=== PATIENT | female | born 1950 | race Caucasian/White ===

== ENCOUNTER 2016-08-27 05:21 | Inpatient (IN) | payer BC ==
--- NOTE | ~2016-08-27 | DS ---
Unit #: [id number] #: [id number] Patient: DUC BRUCE [id number] [address] [place], [place] [address] [id number] I MR#: [id number] NAME: DUC BRUCE. ROOM: 218 Age: 65 Sex: F Admission Date: 08/27/2016 : 1950 Discharge Date: 08/30/2016 Attending Physician: Nasim Sawyer M.D. Primary Care Physician: Gonzalez Heller M.D. DISCHARGE SUMMARY REASON FOR ADMISSION Near syncope, nausea. HISTORY OF PRESENT ILLNESS/HOSPITAL COURSE The patient is a very pleasant 65-year-old female with underlying history of hypertension, hyperlipidemia, hypothyroidism and depression, who developed acute onset of dizziness as well as vertigo. Every time that she would turn in a different direction she would have room spinning episodes as well as associated nausea. She was admitted for the same. She underwent a CT of the head and noncontrast in the emergency room, which did not show any acute process. She was admitted under the premise of possible underlying CVA and/or vestibular labyrinthitis. Consultation was placed to neurology services, who initially recommended MRI. However, the patient was unable to tolerate secondary to profound nausea and/or dizziness. This was attempted on two different occasions. The patient could not tolerate. The patient was treated secondary to her symptoms, which were most consistent with viral labyrinthitis/vertigo with IV Solu-Medrol, Antivert, promethazine and well as Zofran p.r.n. Over the past 48 hours she has shown marked improvement. She is now able to tolerate diet well with minimal nausea. She is able to ambulate without difficulty. She has no further spinning episodes. At this point in time we have held off on performing an MRI/MRA. Her hemoglobin A1c this hospital admission was 5.6%. Her B12 level did come back decreased to 274. She was given a B12 IM injection prior to discharge. It should also be noted that prior to discharge her blood pressure medications have been adjusted and her lisinopril has been discontinued, as her blood pressure systolic has remained in the low 100s. This morning it is currently the highest it has been through her hospital course at 136 systolic, but for now her lisinopril will be placed on hold. Her atenolol dosage will remain the same. I will give her a prescription for Antivert as well as prednisone at the time of discharge. Unit #: [id number] #: [id number] Patient: DUC BRUCE She will follow up with her primary care physician, Dr. Heller, in 7-10 days. She will also follow up as an outpatient for ongoing vestibular rehab. FINAL DISCHARGE DIAGNOSES 1. Vestibular labyrinthitis. 2. Vertigo. 3. Intractable nausea and vomiting, now resolved. 4. Hypertension. 5. Hyperlipidemia. 6. Depression. 7. B12 deficiency. 8. Morbid obesity. DISCHARGE MEDICATIONS 1. Zoloft 100 mg p.o. at nighttime. 2. Tenormin 25 mg p.o. daily. 3. Lipitor 20 mg p.o. at nighttime. 4. Synthroid 100 mcg p.o. daily. 5. Prednisone 40 mg p.o. daily times 5 days. 6. Antivert 25 mg p.o. q.8 h. p.r.n., #15, prescription given. Dictated by... Nasim Sawyer M.D. KEIKO/chelly TD: 09/02/2016 08:12 JOB #: [id number] DISCHARGE SUMMARY Page 1 of 1 X Nasim Sawyer MD X DISCHARGE SUMMARY
--- NOTE | ~2016-08-27 | CR72 ---
[facility] A Service [facility] RADIOLOGY TEXT RESULTS PATIENT: DUC BRUCE LOCATION: [facility] : 52 UNIT #: [id number] AGE: [address]: Deepika Hawley MD SEX: F ORDER DR: [id number] [facility] [address] [facility]. [place], [place] [address] [id number] E MR#: [id number] Acc #: [id number] NAME: DUC BRUCE. : 1950 SEX: F STUDY DATE/TIME: 08/27/2016 6:27 UNIT: [facility] ROOM: STUDY DESCRIPTION: CR Chest Single View Portable Attending Physician: Marco Graham M.D. Ordering Physician: Marco Graham M.D. Primary Care Physician: Gonzalez Heller M.D. MEDICAL IMAGING REPORT This report is preliminary unless electronic signature is present EXAM Portable chest 08/27/2016 INDICATION Shortness of air, dizziness beginning this morning. COMPARISON 09/17/2012. FINDINGS A portable view of the chest was obtained. The heart size and vascularity are normal. The lungs are clear except for calcified left lung granuloma. There is some minimal scarring in the right base which is stable. The bones are normal. IMPRESSION No active disease. Dictated by... Addison Al M.D. THIS IS AN ELECTRONICALLY VERIFIED REPORT Addison Al M.D. at 08/27/2016 12:22 PM KEVIN/ethel TD: 08/27/2016 08:14 JOB #: [id number] MEDICAL IMAGING REPORT [facility] A [facility] RADIOLOGY TEXT RESULTS PATIENT: DUC BRUCE LOCATION: [facility] : 52 UNIT #: [id number] AGE: [address]: Deepika Hawley MD SEX: F ORDER DR: Page 1 of 1 COPY
--- NOTE | ~2016-08-27 | CO ---
Unit #: [id number] #: [id number] Patient: DUC BRUCE [id number] [facility] [address]. [place], [place] [address] [id number] I MR#: [id number] NAME: DUC BRUCE. ROOM: 318 Age: 65 Sex: F Admission Date: 08/27/2016 : 1950 Attending Physician: Nasim Sawyer M.D. Primary Care Physician: Gonzalez Heller M.D. Requesting Physician: Deepika Hawley M.D. Consultation Date: 08/27/2016 CONSULTATION REPORT REASON FOR CONSULT Vertigo. PATIENT IDENTIFICATION This is a 65-year-old, right-handed, female evaluated originally in ER T6. She is now in room 318 at [facility]. SOURCE OF INFORMATION Obtained from the patient, as well as the medical record. HISTORY OF PRESENT ILLNESS This is a very pleasant 65-year-old, right-handed, female with past medical history of hypertension, hyperlipidemia, hypothyroidism and depression who presented to [facility] with complaints of dizziness. The patient states that she was in her usual state of health until around midnight when she woke up to turn over in bed, and she states that she felt very dizzy. She states that she has experienced this feeling before but that it just went away on its own very quickly. She states that she went back to sleep and did not think too much of it. Closing her eyes and lying still on her side actually made the symptoms improve. About 2 hours later she states she woke up to go to the bathroom and could not get up out of bed. She states that she was so "dizzy" that she could not change position or sit up or stand up. She states that everything was spinning around her. She reports that lying still on her side, closing her eyes made the symptoms better, but any position change or movement made symptoms worse. She reports associated nausea and vomiting with any movement. She was brought in via EMS after her called . She denies any associated double vision, blurred vision or loss of vision, headache or neck pain, recent illness or injury or recent chiropractic manipulation of the head or neck. She denies any recent febrile illness, upper respiratory infection or symptoms, any change in medication, any hearing loss or any other associated symptoms, any focal weakness or paresthesia or loss of consciousness or loss of awareness, shortness of air, chest pain, abdominal pain or palpitations. She does complain of associated nausea and vomiting, which is worse with movement. CT of the head was done without contrast in the ER that was negative for any acute appearing abnormality in the brain. It does show patchy areas of diminished white matter density in the bilateral cerebral hemispheres, most likely reflecting sequelae of chronic microvascular ischemia and also vascular calcifications. Her CBC was unremarkable, and her BMP was Unit #: [id number] #: [id number] Patient: DUC BRUCE unremarkable other than an elevated glucose of 167. Urinalysis was unremarkable. Chest x-ray was unremarkable for active disease, and troponin was less than 0.03. CK is 153. The patient has persistence of symptoms, quite severe. Although neurologic exam is nonfocal, exam is somewhat limited, as the patient has severe vertigo with movement whatsoever. PAST MEDICAL HISTORY 1. Hypertension. 2. Hyperlipidemia. 3. Hypothyroidism. 4. Obesity. 5. Obstructive sleep apnea. 6. Depression. 7. Hysterectomy. 8. Knee surgery. 9. Foot surgery. FAMILY HISTORY Positive for coronary artery disease and diabetes. SOCIAL HISTORY The patient is , lives with her . She denies tobacco use, alcohol use or illicit drug use. She works at [employer]. She is independent with ADLs. CODE STATUS She is a DNR. ALLERGIES Sulfa. HOME MEDICATIONS 1. Lisinopril. 2. Atenolol. 3. Atorvastatin. 4. Synthroid. 5. Motrin. Home medications are being reconciled. She states she does not take aspirin or antiplatelet medications or anticoagulating medications. REVIEW OF SYSTEMS A 14-point review of systems was attempted. Pertinent positives are as discussed above; otherwise, negative. PHYSICAL EXAMINATION VITAL SIGNS: Temperature 98.7. She has been afebrile. Pulse 79, respirations 16, blood pressure 99/47. Blood pressure in the ER on arrival was 122/80. Oxygen saturation is 95%. Height 5'4", weight 208 pounds. BMI 35. NEUROLOGIC EXAM MENTAL STATUS: She is awake, alert and oriented to person, place, time, as well as events. No right/left confusion. No finger agnosia. No aphasia, dysarthria or apraxia. CRANIAL NERVE EXAM: Cranial nerves appear to be intact. She demonstrates Unit #: [id number] #: [id number] Patient: DUC BRUCE A full white of vision. Eyes are conjugate without ptosis or nystagmus. Extraocular movements are intact. Sensation of the face and scalp is intact. Strength of muscles of facial expression is intact. Hearing is intact to finger rub and conversation. Tongue is midline. Uvula is midline. Palate elevation is normal. Head turning does elicit vertigo. Shoulder shrug is unremarkable. Neck is supple. She does not appear to have any nystagmus on my evaluation at the time that I evaluate her. Evaluation of extraocular movements does elicit vertigo and nausea, as well. MOTOR EXAM: She demonstrates normal bulk and tone. Strength is equal, 5+/5 in all extremities. SENSORY EXAM: Intact to soft touch and pinprick sensation. GAIT: Gait and Romberg unable to be evaluated at this time. Bangor-Hallpike unable to be performed at this time. I was unable to even get the patient to lie on her back, as when she turns from her right side onto her back, she has severe complaints of vertigo and nausea, thus, limiting that portion of her exam. She has normal iqorqx-bv-cfty and normal rapid alternating movements. No cerebellar signs seen. DIAGNOSTIC STUDIES As discussed above. IMPRESSION 1. Acute vertigo with nausea and vomiting with no associated focal neurologic findings at this time; however, her exam is limited, as she is experiencing significant vertigo with any movement. Possible benign paroxysmal positional vertigo, rule out (1) etiology versus other etiology. 2. Hypertension. 3. Hypothyroidism. 4. Obesity. 5. History of obstructive sleep apnea. 6. Nonsmoker. PLAN Again, the patient denies any hearing loss, although she has had these events before but they resolved spontaneously and were not this severe. She denies any recent injury to the head and neck, any chiropractic manipulation, any focal neurologic findings. Denies any recent URI or fever. Cannot do Bangor-Hallpike at this time. We have requested MRI of the brain, MRA of the head and neck. The patient has attempted twice and has been unable to tolerate. Will try to repeat that again in the morning. She has received aspirin. Will ask PT/OT to evaluate. Further recommendations pending workup and further clinical course. We definitely would like to rule out a cerebellar infarct as a priority; however, the patient is unable to tolerate scanning at this time. Will reattempt and continue medication as ordered. Please call for any questions or issues. We thank you very much for allowing us to assist in the care of this patient. Dictated by... Kasia Lao A.P.R.N. for Casey Turpin/tyson TD: 08/28/2016 07:55 JOB #: [id number] Unit #: [id number] #: [id number] Patient: DUC BRUCE CONSULTATION REPORT Page 1 of 1 X Kasia Lao FIRST OFFICER X CONSULTATION REPORT
--- NOTE | ~2016-08-27 | CT71 ---
[facility] A Service [facility] RADIOLOGY TEXT RESULTS PATIENT: DUC BRUCE LOCATION: [facility] 318-01 : 54 UNIT #: [id number] AGE: [address]: Deepika Hawley MD SEX: F ORDER DR: [id number] [facility] [address]. [place], [place] [address] [id number] E MR#: [id number] Acc #: [id number] NAME: DUC BRUCE. : 1950 SEX: F STUDY DATE/TIME: 08/27/2016 8:10 UNIT: AMBER ROOM: STUDY DESCRIPTION: CT Head Wo Contrast Attending Physician: Marco Graham M.D. Ordering Physician: Marco Graham M.D. Primary Care Physician: Gonzalez Heller M.D. MEDICAL IMAGING REPORT This report is preliminary unless electronic signature is present EXAM CT head, 08/27/2016. HISTORY Near syncope, nausea, dizziness since midnight. Unable to lay flat. Extreme dizziness, nausea. TECHNIQUE CT head performed skull base through vertex without intravenous contrast. This CT exam was performed with one or more of the following radiation dose reduction techniques: automatic exposure control, adjustment of mA and/or kV according to patient size, and iterative reconstruction. COMPARISON STUDIES No prior studies for comparison. FINDINGS No hemorrhage. No evidence of acute cortical ischemia. Patchy areas of diminished white matter density in the bilateral cerebral hemispheres, probably reflecting sequelae of chronic microvascular ischemia. Midline structures are nondisplaced. Basal ganglia intact. Ventricles, cisterns, and sulci normal in size and contour. No intra or extraaxial mass effect or abnormal intracranial fluid collection. The visualized intraorbital soft tissues are unremarkable. Visualized paranasal sinuses and mastoid air cells clear. No fracture. Cavernous carotid and distal vertebral arterial calcifications. IMPRESSION 1. No acute-appearing abnormality in the brain. If the patient has ongoing neurologic symptoms, consider followup imaging, preferably with MRI if the patient is a candidate. [facility] A Service [facility] RADIOLOGY TEXT RESULTS PATIENT: DUC BRUCE LOCATION: [facility] 318-01 : 54 UNIT #: [id number] AGE: [address]: Deepika Hawley MD SEX: F ORDER DR: 2. There are patchy areas of diminished white matter density bilateral cerebral hemispheres, most likely reflecting sequelae of chronic microvascular ischemia. 3. Vascular calcifications. Dictated by... Yoel Gutierrez M.D. THIS IS AN ELECTRONICALLY VERIFIED REPORT Yoel Gutierrez M.D. at 08/27/2016 3:50 PM YESICA/alexx TD: 08/27/2016 09:56 JOB #: [id number] MEDICAL IMAGING REPORT Page 1 of 1 COPY
--- NOTE | ~2016-08-27 | HP ---
Unit #: [id number] #: [id number] Patient: DUC BRUCE [id number] [facility] [address]. [place], [place] [address] [id number] I MR#: [id number] NAME: DUC BRUCE ROOM: 26560 Age: 65 Sex: F Admission Date: 08/27/2016 : 1950 Attending Physician: Deepika Hawley M.D. Primary Care Physician: Gonzalez Heller M.D. HISTORY AND PHYSICAL CHIEF COMPLAINT Near syncope, nausea. HISTORY OF PRESENT ILLNESS The patient is a 65-year-old female with a past medical history of hypertension, hyperlipidemia, hypothyroidism, depression, who presented to the emergency department for evaluation of the above. The patient states that she was in her usual state of health until around midnight when she turned over and felt "dizzy". She states that she went back to sleep. Around 2 a.m. on the morning of admission, she awoke from sleep to use the bathroom and, again, felt like the room was "spinning". She was then able to get out of bed. She states that she was so dizzy that she was unable to open her eyes. She denies any fever. No cough or cold symptoms. No chest pain. She states that she has had dizziness intermittently in the past. However, typically it would resolve spontaneously. In the emergency department, a CT of the head was done and showed nothing acute. The patient initially refused MRI and MRA but is now agreeable. She is being admitted to [facility] for evaluation and further treatment. PAST MEDICAL HISTORY 1. Hypertension. 2. Hyperlipidemia. 3. Hypothyroidism. 4. Depression. PAST SURGICAL HISTORY 1. Hysterectomy. 2. Knee surgery. 3. Foot surgery. SOCIAL HISTORY The patient lives with her . There is no tobacco or alcohol use. 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 She typically walks without assistance. There is no tobacco or alcohol use. Regarding CODE status, the patient is a DO NOT RESUSCITATE. FAMILY HISTORY Notable for both parents having "heart issues". Her dad also had diabetes. ALLERGIES Unit #: [id number] #: [id number] Patient: DUC BRUCE Sulfa. HOME MEDICATIONS 1. Lisinopril. 2. Atenolol. 3. Atorvastatin. 4. Synthroid. 5. Motrin. Home medications will need to be reviewed and verified. REVIEW OF SYSTEMS A complete review of systems is negative except as indicated in the HPI. PHYSICAL EXAMINATION GENERAL APPEARANCE: The patient is a female who is awake and alert. VITAL SIGNS: Temperature 97.8. Pulse 66. Respiration 17. Blood pressure 122/80. Oxygen saturation 95% on room air. HEENT: The head is atraumatic. Mucous membranes are moist. NECK: Supple. Trachea is midline. CARDIOVASCULAR: Regular rate and rhythm. LUNGS: Clear to auscultation bilaterally with no increased work of breathing. ABDOMEN: Soft, nontender with bowel sounds in all four quadrants. EXTREMITIES: Nontender with no pedal edema. NEUROLOGIC: The patient is awake and alert. She does appear to have horizontal nystagmus. Envlbc-sy-aahf is intact. Rapid alternating movements are intact. Gait was not accessed. PSYCHIATRIC: Mood and affect are normal. The patient is cooperative. SKIN: Of examined areas is warm and dry. DIAGNOSTIC STUDIES LABORATORY: Comprehensive metabolic panel notable for glucose of 167. Complete blood count is completely normal. Troponin is less than 0.05. IMAGING: Chest x-ray shows no acute abnormality. CT of the head shows nothing acute. Urinalysis is essentially normal. CARDIOVASCULAR: EKG shows sinus bradycardia with first degree AV block and a rate of 57 beats per minute. ASSESSMENT The patient is a 65-year-old female with: 1. Vertigo. Initial CT of the head was negative. 2. Hypertension. 3. Hyperlipidemia. 4. Hypothyroidism. 5. Depression. PLAN 1. Admit to intermediate level for observation. 2. Normal saline at 75 mL/hour. 3. Healthy diet if passes bedside swallow. 4. MRI of the brain. 5. MRA of the head and neck. 6. Neuro checks. 7. Consult Neurology regarding vertigo. Unit #: [id number] #: [id number] Patient: DUC BRUCE 8. Stroke protocol per Neurology. 9. Aspirin 325 mg p.o. times one if not already given. 10. Serial cardiac enzymes. 11. Repeat labs in the morning. 12. SCDs for DVT prophylaxis. 13. Additional workup and consultants based on above. Dictated by Deepika Hawley M.D. HANDY/jeremias TD: 08/27/2016 11:26 JOB #: [id number] HISTORY AND PHYSICAL Page 1 of 1 X Deepika Hawley MD HISTORY AND PHYSICAL
--- NOTE | ~2016-08-27 | EKG ---
PATIENT: DUC BRUCE UNIT #: [id number] Ventricular Rate: 57 BPM Atrial Rate: 57 BPM P-R Interval: 210 ms QRS Duration: 92 ms Q-T Interval: 476 ms QTC Calculation(Bezet): 463 ms P [place]: 49 degrees Calculated R [place]: 19 degrees Calculated T [place]: 84 degrees Diagnosis Line: Sinus bradycardia with 1st degree A-V block Diagnosis Line: Inferior infarct (cited on or before 15-SEP-2012) Diagnosis Line: Possible Anterolateral infarct (cited on or before Diagnosis Line: 15-SEP-2012) Prolonged QT Diagnosis Line: Abnormal ECG Diagnosis Line: When compared with ECG of 15-SEP-2012 07:12, Diagnosis Line: No significant change was found Diagnosis Line: Confirmed by SERJIO RAO MD ([id number]) on 08/28/2016 Diagnosis Line: 9:59:07 AM INTERPRETING MD: MAIRA NINA
[~2016-08-27 05:21] MED LIST: ATENOLOL PO; B-100 COMPLEX1 TAB; BENZONATATE PO; FISH OIL500 M1 PO; LEVAQUIN750 M1 PO; LEVOTHYROXINE88 MCG; LISINOPRIL10 MG; LIVALO2 MG; PHENERGAN25 M1 PO; VITAMIN C100 MG; ZOLOFT PO
[2016-08-27 06:11] LABS: POC - TROPONIN <0.05 ng/mL (<=0.05)
[2016-08-27 06:25] LABS: BASOPHIL# 0.1 X10e3 (0-0.3); BASOPHIL% 0.9 % (0-2.5); EOSINOPHIL# 0.2 X10e3 (0-0.7); EOSINOPHIL% 2.8 % (0.0-7.0); HEMATOCRIT 43.8 % (35.0-45.0); HEMOGLOBIN 14.5 gm/dL (12.0-16.0); LYMPHOCYTE# 2.5 X10e3 (1.0-3.5); LYMPHOCYTE% 38.5 % (17.0-45.0); MEAN CELL VOLUME 88.8 FL (83-96); MEAN CORPUSCULAR HEMOGLOBIN 29.3 PG (28-34); MEAN PLATELET VOLUME 8.5 FL (6.5-11.5); MONOCYTE# 0.3 X10e3 (0-1.0); MONOCYTE% 5.2 % (3.0-12.0); NEUTROPHIL# 3.4 X10e3 (1.5-7.1); NEUTROPHIL% 52.6 % (40-75); PLATELET COUNT 214 X10e3 (140-420); RED BLOOD COUNT 4.93 X10e (3.90-5.30); RED CELL DISTRIBUTION WIDTH 13.1 % (11.0-15.5); WHITE BLOOD COUNT 6.5 X10e3 (4.0-10.5)
[2016-08-27 06:36] LABS: DIFF IND NO
[2016-08-27 07:11] LABS: BILIRUBIN, DIRECT 0.1 mg/dL (0.0-0.2); BILIRUBIN,INDIRECT 0.6 mg/dL (0.0-0.9); BILIRUBIN,TOTAL 0.7 mg/dL (0.2-2.0); BUN/CREATININE RATIO 31.66; CREATININE SERUM 0.6 mg/dL (0.6-1.4); POTASSIUM 4.2 mmol/L (3.5-5.1); PROTEIN TOTAL SERUM 6.8 g/dL (6.0-8.3)
[2016-08-27 08:57] LABS: URINE SOURCE CLEAN CATCH
[2016-08-27 09:10] LABS: URINE APPEARANCE CLEAR; URINE BILIRUBIN NEG (NEG); URINE BLOOD NEG (NEG); URINE COLOR YELLOW; URINE GLUCOSE NEG (NEG); URINE KETONE NEG (NEG); URINE LEUKOCYTE ESTERASE NEG (NEG); URINE NITRATE NEG (NEG); URINE PROTEIN NEG (NEG); URINE SPECIFIC GRAVITY 1.015 (1.003-1.035); URINE UROBILINOGEN 0.2 MG/DL (NEG)
[2016-08-27 09:15] LABS: CULTURE INDICATED? NO
[2016-08-27 13:53] LABS: %MB 2.5 % (0.0-4.0); MB 3.9 ng/ml
[2016-08-27] MEDS ORDERED: LISINOPRIL10 MG PO (16:28)
[2016-08-27] MEDS ORDERED: ZOLOFT100 MG PO (16:29)
[2016-08-27] MEDS ORDERED: SYNTHROID PO (16:29)
[2016-08-27] MEDS ORDERED: ATENOLOL25 MG PO (16:30)
[2016-08-27] MEDS ORDERED: LIPITOR20 MG PO (16:31)
[2016-08-27 18:37] LABS: %MB 2.8 % (0.0-4.0); MB 4.1 ng/ml
[2016-08-28 05:51] LABS: HEMATOCRIT 39.4 % (35.0-45.0); MEAN CELL VOLUME 88.9 FL (83-96); MEAN CORPUSCULAR HEMOGLOBIN 29.3 PG (28-34); MEAN PLATELET VOLUME 8.5 FL (6.5-11.5); RED BLOOD COUNT 4.43 X10e (3.90-5.30); RED CELL DISTRIBUTION WIDTH 13.1 % (11.0-15.5)
[2016-08-28 05:52] LABS: WHITE BLOOD COUNT 10.4 X10e3 (4.0-10.5)
[2016-08-28 07:35] LABS: ALBUMIN SERUM 3.5 g/dL (3.5-5.0); BUN/CREATININE RATIO 22.85; CALCIUM SERUM 8.5 mg/dL (8.4-10.2); CREATININE SERUM 0.7 mg/dL (0.6-1.4); GLOM FILT RATE Estimated 92.2 mL/min (>60); POTASSIUM 4.2 mmol/L (3.5-5.1); PROTEIN TOTAL SERUM 5.6 g/dL (6.0-8.3)
[2016-08-29 08:45] LABS: HEMATOCRIT 41.5 % (35.0-45.0); HEMOGLOBIN 13.5 gm/dL (12.0-16.0); MEAN CORPUSCULAR HEMOGLOBIN 29.2 PG (28-34); MEAN CORPUSCULAR HGB CONC 32.4 g/dL (30-36); MEAN PLATELET VOLUME 8.7 FL (6.5-11.5); RED BLOOD COUNT 4.61 X10e (3.90-5.30); RED CELL DISTRIBUTION WIDTH 12.9 % (11.0-15.5); WHITE BLOOD COUNT 15.5 X10e3 (4.0-10.5)
[2016-08-29 11:43] LABS: ALBUMIN SERUM 3.8 g/dL (3.5-5.0); BILIRUBIN,TOTAL 0.5 mg/dL (0.2-2.0); CREATININE SERUM 0.7 mg/dL (0.6-1.4); GLOM FILT RATE Estimated 92.2 mL/min (>60); POTASSIUM 4.1 mmol/L (3.5-5.1); PROTEIN TOTAL SERUM 6.3 g/dL (6.0-8.3)
[2016-08-30] MEDS ORDERED: PREDNISONE PO (11:19)
[2016-08-30] MEDS ORDERED: ANTIVERT PO (11:20)
[2016-08-30] MEDS ORDERED: NON-ASPIRIN325 MG PO (11:22)
== END 2016-08-30 12:15 | disposition home or self-care (01) | DRG 149 ==
LOC: CED 05:21 → CEDOF 09:44 → C3A PCU 09:44 → CED 09:44 → C3A PCU 09:59 → CEDOF 09:59 → CED 09:59 → CEDOF 16:05 → C3A PCU 16:05 → C2A 08-30 07:30 → C3A PCU 08-30 07:30 → C2A 08-30 12:15
PROVIDERS: Emergency Medicine; Family Medicine
DX: H83.09 Labyrinthitis, unspecified ear (principal); E66.01 Morbid (severe) obesity due to excess calories; I10 Essential (primary) hypertension; E78.5 Hyperlipidemia, unspecified; F32.9 Major depressive disorder, single episode, unspecified; E53.8 Deficiency of other specified B group vitamins; Z68.35 Body mass index [BMI] 35.0-35.9, adult; E03.9 Hypothyroidism, unspecified; G47.33 Obstructive sleep apnea (adult) (pediatric); D72.829 Elevated white blood cell count, unspecified; Z66 Do not resuscitate; Z90.710 Acquired absence of both cervix and uterus; Z88.2 Allergy status to sulfonamides; Z82.49 Family history of ischemic heart disease and other diseases of the circulatory system; Z83.3 Family history of diabetes mellitus
CPT/HCPCS: 36415; 70450; 71010; 80048; 80053; 80076; 81003; 82550; 82553; 82607; 83036; 84484; 85025; 85027; 93005; 96374; 97110; 97166; 97530; 97535; 99285; J2060; J2405; J2550; J2920; J3420